=== PATIENT | male | born 1955 | race Caucasian/White ===

== ENCOUNTER 2021-07-10 07:49 | Outpatient (REF) | payer MEDICARE, MEDICAID, SELFPAY ==
--- NOTE | 2021-07-10 14:46 | PFT_ITS ---
Forced vital capacity and FEV1 are both moderately decreased. [id number] and MVV also moderately decreased. Postbronchodilator therapy, there is significant improvement in UOC33-28 and MVV. Total lung capacity is slightly decreased and residual volume normal. Diffusion capacity moderately decreased. CONCLUSION: 1. Moderately severe restrictive pulmonary disorder. 2. Mild obstructive airway disorder with good response to bronchodilator therapy. These findings are consistent with combination of bronchial asthma and restrictive pulmonary disorder. Clinical correlation is recommended. Kristi Hooper MD MSB/MODL / [id number]
== END 2021-07-10 07:50 | disposition home or self-care (01) ==
LOC: HO.RESP 07:49
PROVIDERS: Visit Provider Physician Assistant
DX: R06.2 Wheezing (principal)
CPT/HCPCS: 94060; 94727; 94729

== ENCOUNTER 2021-09-06 09:58 | Outpatient (REF) | payer MEDICARE, MEDICAID, SELFPAY ==
--- NOTE | ~2021-09-06 | XR_ITS ---
EXAMINATION: XR CHEST CLINICAL INFORMATION: J44.9 - Chronic obstructive pulmonary disease, unspecified COMPARISON: Chest radiographs 08/30/2013 TECHNIQUE: 2 views of the chest were obtained. FINDINGS: The lungs are clear. There is no hyperinflation, airspace consolidation or groundglass opacity. The costophrenic sulci are clear. The heart is normal in size and the hilar and mediastinal contours are unremarkable. No acute bony abnormality. XR/XR chest 2V IMPRESSION: Unremarkable examination.
== END 2021-09-06 09:59 | disposition home or self-care (01) ==
LOC: HO.XRAY 09:58
PROVIDERS: PCP Physician Assistant; Visit Provider Internal Medicine
DX: J44.9 Chronic obstructive pulmonary disease, unspecified (principal); J45.909 Unspecified asthma, uncomplicated
CPT/HCPCS: 71046; 99202

== ENCOUNTER 2021-10-09 08:12 | Outpatient (REF) | payer MEDICARE, MEDICAID, SELFPAY ==
[2021-10-09 10:13] LABS: Hematocrit 47.3 % (42.0-52.0); Hemoglobin 15.3 g/dl (14.0-18.0); Mean Corpuscular HGB Conc 32.3 g/dl (31.0-36.0); Mean Corpuscular Hemoglobin 29.9 pg (27.0-33.0); Mean Corpuscular Volume 92.6 fL (80.0-98.0); Mean Platelet Volume 9.9 fL (9.4-12.4); Platelet Count 329 X10*3/uL (160-400); Red Blood Count 5.11 X10*6/uL (4.60-5.80); Red Cell Distribution Width 12.6 % (11.0-16.0); White Blood Count 11.2 X10*3/uL (4.8-10.8)
[2021-10-09 10:25] LABS: Alanine Aminotransferase 12 U/L (0-40); Alkaline Phosphatase 103 U/L (39-117); Anion Gap 12 (12-20); Aspartate Amino Transferase 17 U/L (5-37); Bilirubin Total 0.9 mg/dL (0.0-1.0); Blood Urea Nitrogen 11 mg/dL (9-16); Calcium 9.6 mg/dL (8.4-10.2); Carbon Dioxide 29 mmol/L (22-29); Chloride 105 mmol/L (96-108); Estimated Average Glucose 108 mg/dL; Estimated Glomerular Filt Rate > 60; Glucose Fasting 93 mg/dL (60-99); Hemoglobin A1c % 5.4 %; Potassium 4.7 mmol/L (3.3-5.1); Sodium 141 mmol/L (135-145); Total Protein 7.5 g/dL (6.5-8.0)
[2021-10-09 10:46] LABS: Creatinine Urine 180.58 mg/dL; Microalbum/Creatinine Ratio Ur 3.8 ug/mg cr
[2021-10-09 10:47] LABS: Prostate Specific Antigen Scr 0.48 ng/mL (<0.05-4.0); TSH reflex Free T4 1.43 uIU/mL (0.32-4.0)
== END 2021-10-09 08:13 | disposition home or self-care (01) ==
LOC: HO.10HDL 08:12
PROVIDERS: Visit Provider Physician Assistant
DX: Z12.5 Encounter for screening for malignant neoplasm of prostate (principal); Z13.29 Encounter for screening for other suspected endocrine disorder; Z13.1 Encounter for screening for diabetes mellitus; I10 Essential (primary) hypertension
CPT/HCPCS: 36415; 80053; 82043; 83036; 84153; 84443; 85027

== ENCOUNTER → 2021-11-21 09:07 | Outpatient (BNVA) | payer MEDICARE, MEDICAID, SELFPAY | PROVIDERS: PCP Physician Assistant; Visit Provider Internal Medicine | DX: J44.9 Chronic obstructive pulmonary disease, unspecified (principal); J45.20 Mild intermittent asthma, uncomplicated | CPT/HCPCS: 94010; 99212 ==

== ENCOUNTER 2022-04-10 14:09 | Outpatient (REF) | payer MEDICARE, MEDICAID, SELFPAY ==
--- NOTE | ~2022-04-10 | XR_ITS ---
EXAMINATION: XR CHEST CLINICAL INFORMATION: Bronchitis COMPARISON: September 06, 2021 TECHNIQUE: 2 views of the chest were obtained. FINDINGS: No significant abnormality is noted involving the heart, lungs, mediastinum, bony thorax or soft tissues. XR/XR chest 2V IMPRESSION: No acute disease.
== END 2022-04-10 14:10 | disposition home or self-care (01) ==
LOC: HO.XRAY 14:09
PROVIDERS: PCP Physician Assistant; Visit Provider Internal Medicine
DX: J45.901 Unspecified asthma with (acute) exacerbation (principal)
CPT/HCPCS: 71046; 99212

== ENCOUNTER → 2022-04-22 11:21 | Outpatient (BNVA) | payer MEDICARE, MEDICAID, SELFPAY | PROVIDERS: PCP Physician Assistant; Visit Provider Internal Medicine | DX: J44.9 Chronic obstructive pulmonary disease, unspecified (principal); J45.20 Mild intermittent asthma, uncomplicated; J98.4 Other disorders of lung | CPT/HCPCS: 99212 ==

== ENCOUNTER 2022-06-19 08:36 | Outpatient (REF) | payer MEDICARE, MEDICAID, SELFPAY ==
--- NOTE | ~2022-06-19 | XR_ITS ---
EXAMINATION: XR KNEE, RIGHT CLINICAL INFORMATION: Right knee pain. COMPARISON: None TECHNIQUE: 3 views of the right knee. FINDINGS: Bones and soft tissues are unremarkable aside from some tiny posterior patellar osteophytes and a possible trace joint effusion. No fracture. Alignment is anatomic. Joint spaces are well maintained. No abnormal soft tissue calcification. XR/XR knee RT 3V IMPRESSION: Minimal patellofemoral degenerative change with possible trace joint effusion.
== END 2022-06-19 08:37 | disposition home or self-care (01) ==
LOC: HO.XRAY 08:36
PROVIDERS: PCP Physician Assistant; Visit Provider Physician Assistant
DX: M25.561 Pain in right knee (principal)
CPT/HCPCS: 73562

== ENCOUNTER → 2022-10-15 09:29 | Outpatient (BNVA) | payer OTHER, SELFPAY | PROVIDERS: PCP Physician Assistant; Visit Provider Internal Medicine | DX: J98.4 Other disorders of lung (principal); J45.20 Mild intermittent asthma, uncomplicated | CPT/HCPCS: 99212 ==

== ENCOUNTER 2023-02-23 11:49 | Emergency (ER) | payer OTHER, SELFPAY ==
--- NOTE | ~2023-02-23 | XR_ITS ---
EXAMINATION: CHEST 2 VIEWS CLINICAL INFORMATION: clammy and chest pain. COMPARISON: 04/10/2022. TECHNIQUE: PA and lateral views of the chest obtained. FINDINGS: The lungs are well expanded. No focal infiltrate, effusion, edema, or pneumothorax. Cardiac and mediastinal silhouettes are within normal limits for technique. No acute bony abnormality seen. Surgical clips in the right upper quadrant likely from prior cholecystectomy XR/XR chest 2V IMPRESSION: No evidence of acute disease.
[2023-02-23 11:58] VITALS: BP 155/100; PULSE 92; RESP 18; TEMP 36.5; O2SAT 98; BMI 23.0
--- NOTE | 2023-02-23 12:01 | ECG_ITS ---
Test Reason : Chest Pain Blood Pressure : / mmHG Vent. Rate : 082 BPM Atrial Rate : 082 BPM P-R Int : 136 ms QRS Dur : 078 ms QT Int : 368 ms P-R-T Axes : 073 026 039 degrees QTc Int : 429 ms Normal sinus rhythm Normal ECG When compared with ECG of 18-AUG-2013 13:19, No significant change was found Referred By: Tracy Aldrich Electronically Signed By:David Abreu
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
[2023-02-23 12:19] LABS: MANUAL DIFF FLAG NO
[2023-02-23 12:21] LABS: Basophils Percent Auto 0.2 % (0-2); Eosinophils Percent Auto 0.1 % (0-4); Hematocrit 46.9 % (42.0-52.0); Hemoglobin 15.7 g/dl (14.0-18.0); Imm Gran Abs Auto 0.04 X10*3/uL (0.00-0.03); Imm Gran Pct Auto 0.3 % (0.0-0.4); Lymphocytes Absolute Auto 1.6 X10*3/uL (1.2-4.9); Lymphocytes Percent Auto 12.7 % (20-40); Mean Corpuscular HGB Conc 33.5 g/dl (31.0-36.0); Mean Corpuscular Hemoglobin 30.4 pg (27.0-33.0); Mean Corpuscular Volume 90.9 fL (80.0-98.0); Mean Platelet Volume 9.3 fL (9.4-12.4); Monocytes Absolute Auto 0.5 X10*3/uL (0.1-1.2); Monocytes Percent Auto 4.4 % (2-11); Neutrophils Percent Auto 82.3 % (45-73); Platelet Count 317 X10*3/uL (160-400); Red Blood Count 5.16 X10*6/uL (4.60-5.80); Red Cell Distribution Width 12.6 % (11.0-16.0); White Blood Count 12.2 X10*3/uL (4.8-10.8)
[2023-02-23 12:31] LABS: INTERNATIONAL NORM RATIO 1.1 (0.9-1.1); Prothrombin Time 12.3 SEC (10.0-13.1)
[2023-02-23 12:41] LABS: Alanine Aminotransferase 13 U/L (0-40); Albumin Level 4.4 g/dL (3.5-5.0); Alkaline Phosphatase 90 U/L (39-117); Anion Gap 16 (12-20); Aspartate Amino Transferase 26 U/L (5-37); Bilirubin Total 1.4 mg/dL (0.0-1.0); Blood Urea Nitrogen 12 mg/dL (9-16); Calcium 10.3 mg/dL (8.4-10.2); Carbon Dioxide 24 mmol/L (22-29); Chloride 104 mmol/L (96-108); Creatinine Clr Calc Pharmacy 69.5; Estimated Glomerular Filt Rate > 60; Glucose Random 100 mg/dL (60-115); Magnesium 2.3 mg/dL (1.6-2.6); Potassium 4.7 mmol/L (3.3-5.1); Sodium 139 mmol/L (135-145); Total Protein 7.8 g/dL (6.5-8.0)
[2023-02-23 12:51] LABS: Troponin-I High Sensitivity < 2.7 ng/L (<3.5-35.0)
[2023-02-23 13:10] VITALS: BP 146/80; PULSE 89; RESP 18; TEMP 36.1; O2SAT 97
[2023-02-23 13:17] LABS: Appearance Urine Clear; Color Urine Dark Yellow; Glucose Urine UA Negative (Negative); Leukocyte Esterase Urine Trace (Negative); Nitrite Urine Negative (Negative); PH 6.5 (5.0-9.0); Specific Gravity - Urine >= 1.030 (1.005-1.025); UMIC TRIGGER UACC YES; Urine Blood Negative (Negative); Urine Ketones 80 mg/dL (Negative); Urine Protein 30 (1+) mg/dL (Neg-Trace)
[2023-02-23 13:22] LABS: Bacteria Urine None Seen (None Seen); Hyaline Casts Urine 0-2 /LPF (0-2); RBC Urine 0-2 /HPF (0-2); Squamous Epithelial Cell Urine 0-2 /HPF (0-2); WBC Urine 0-5 /HPF (0-5)
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
== END 2023-02-23 15:27 | disposition home or self-care (01) ==
PROVIDERS: Physician Assistant Medical; Emergency Provider Student in an Organized Health Care Education/Training Program; PCP Physician Assistant
DX: R07.89 Other chest pain (principal); E86.0 Dehydration; R79.82 Elevated C-reactive protein (CRP); Z87.891 Personal history of nicotine dependence; Z79.899 Other long term (current) drug therapy
CPT/HCPCS: 36415; 71046; 80053; 81001; 82550; 83735; 84484; 85025; 85610; 93005; 99284

== ENCOUNTER → 2023-02-23 12:01 | Outpatient (BNV) | payer OTHER, SELFPAY | PROVIDERS: Emergency Provider Student in an Organized Health Care Education/Training Program; PCP Physician Assistant; Visit Provider Internal Medicine Cardiovascular Disease | DX: R07.9 Chest pain, unspecified (principal) | CPT/HCPCS: 93010 ==

== ENCOUNTER 2023-03-28 09:27 | Outpatient (REF) | payer OTHER, SELFPAY ==
--- NOTE | ~2023-03-28 | XR_ITS ---
EXAMINATION: XR ELBOW, LEFT CLINICAL INFORMATION: Pain in left elbow COMPARISON: None available. TECHNIQUE: AP, lateral, and oblique views of the left elbow. FINDINGS: The bones are intact. Mild soft tissue swelling over the olecranon could represent mild olecranon bursitis. No fracture or joint effusion. Alignment is anatomic. Joint spaces are maintained. XR/XR elbow LT 2V IMPRESSION: 1. No bony abnormality. 2. Question mild olecranon bursitis.
== END 2023-03-28 09:28 | disposition home or self-care (01) ==
LOC: HO.XRAY 09:27
PROVIDERS: PCP Physician Assistant; Visit Provider Physician Assistant
DX: M25.522 Pain in left elbow (principal)
CPT/HCPCS: 73070

== ENCOUNTER 2023-04-30 07:42 | Outpatient (REF) | payer OTHER, SELFPAY ==
[2023-04-30 08:52] LABS: Hematocrit 46.3 % (42.0-52.0); Hemoglobin 15.2 g/dl (14.0-18.0); Mean Corpuscular HGB Conc 32.8 g/dl (31.0-36.0); Mean Corpuscular Volume 94.5 fL (80.0-98.0); Mean Platelet Volume 9.8 fL (9.4-12.4); Platelet Count 289 X10*3/uL (160-400); Red Cell Distribution Width 12.9 % (11.0-16.0); White Blood Count 8.6 X10*3/uL (4.8-10.8)
[2023-04-30 10:16] LABS: Alanine Aminotransferase 10 U/L (0-40); Albumin Level 4.1 g/dL (3.5-5.0); Alkaline Phosphatase 78 U/L (39-117); Anion Gap 12 (12-20); Aspartate Amino Transferase 16 U/L (5-37); Bilirubin Total 0.7 mg/dL (0.0-1.0); Blood Urea Nitrogen 11 mg/dL (9-16); Calcium 9.6 mg/dL (8.4-10.2); Carbon Dioxide 28 mmol/L (22-29); Chloride 107 mmol/L (96-108); Cholesterol 182 mg/dL (<200); Estimated Glomerular Filt Rate > 60; Glucose Fasting 102 mg/dL (60-99); HDL Cholesterol 56 mg/dL (>40); LDL Cholesterol Calculated 115 mg/dL (<100); Potassium 3.9 mmol/L (3.3-5.1); Sodium 143 mmol/L (135-145); Total Protein 7.2 g/dL (6.5-8.0); Triglycerides 57 mg/dL (<150)
[2023-04-30 10:26] LABS: Prostate Specific Antigen Scr 0.56 ng/mL (<0.05-4.0)
[2023-04-30 10:42] LABS: TSH reflex Free T4 1.21 uIU/mL (0.32-4.0)
[2023-04-30 10:57] LABS: Creatinine Urine 258.36 mg/dL; Microalbum/Creatinine Ratio Ur 5.8 ug/mg cr (<30)
== END 2023-04-30 07:43 | disposition home or self-care (01) ==
LOC: HO.LAB 07:42
PROVIDERS: PCP Physician Assistant; Visit Provider Physician Assistant
DX: Z13.220 Encounter for screening for lipoid disorders (principal); Z12.5 Encounter for screening for malignant neoplasm of prostate; I10 Essential (primary) hypertension
CPT/HCPCS: 36415; 80053; 80061; 82043; 82570; 84153; 84443; 85027

== ENCOUNTER 2023-05-06 08:12 | Outpatient (AMB) | payer OTHER, SELFPAY ==
[2023-05-06 08:18] VITALS: BP 130/76; PULSE 71; O2SAT 98; BMI 22.2
--- NOTE | 2023-05-06 08:18 | MHC.PC.OV ---
Vital Signs 05/06/23 08:18 Height 5 ft 7 in Weight 142 lb BMI 22.2 BP 130/76 Blood Pressure Location Lt brachial Position Sitting Pulse 71 Pulse Source Pulse Oximeter Pulse Oximetry (%) 98 Oxygen Delivery Method Room Air Intake Visit Reasons: 6mth f/u Allergies No Known Allergies Allergy (Verified 05/06/23 08:38) Medication List - Last Reconciled 05/06/23 by Adiel Cleary PA-C albuterol sulfate 90 mcg/actuation 1 inh inhalation QID 30 days blood pressure test kit-medium As directed lisinopril 5 mg PO DAILY 90 days Tobacco use date assessed: 10/29/22 Fall risk assessment: No Falls in past year Last assessed Fall Risk: 05/06/23 Dental Screening Dental Screen Date: 05/06/23 Did you have a dental visit in the last 12 months?: Yes Did you have a dental problem in the last 6 months where you did not have access to dental care?: No Was dental information given to patient?: Patient has dentist HPI 6mth f/u HPI Details Patient is a 67 y/ o M .? Patient has a past history significant for hypertension, asthma. Concern--> reports he continues to have lateral left elbow pain, has gotten x-ray that did show some mild olecranon bursitis. He does do a lot of activities with his upper extremities including blanket to her. Likely has a lateral epicondylitis and would benefit from physical therapy .. Asthma:? Patient followed by pulmonology, has been prescribed an albuterol inhaler to which she only seldomly uses. Did have a pulmonary function test did show reactive airway disease mostly in his small airways.? Otherwise denies any recent exacerbation or nighttime awakenings with asthma symptoms.? .. Hypertension:?.? Patient continues on lisinopril 5 mg with good effect on his blood pressure. continue without medication at this time and advised patient to monitor blood pressure at home.? Otherwise denies any shortness of breath, chest discomfort, palpitations, headaches.. [facility] Medical History (Updated 05/06/23 @ 08:56 by Adiel Cleary PA-C) Cervical myelopathy with cervical radiculopathy Erectile dysfunction Bronchitis Asthma exacerbation COPD (chronic obstructive pulmonary disease) Surgical History History of cholecystectomy H/O hernia repair Family History Father Alcoholic Brother Brain cancer Other Substance use disorder Social History Housing: Apartment Alcohol intake: former Year quit: 2006 Patient Tobacco Use Status: Former Tobacco user Quit Date: 2011 Tobacco use type: Cigarette Years Smoked: Quit 2011. e-Cigarette/Vaping Use: Former Use Second Hand Smoke Exposure: No service: No Current occupational status: retired Cognitive needs: No Hearing needs: Yes (hearing aide) Vision needs: Yes (glasses) Questionnaire PHQ-9 Over the last 2 weeks, how often have you been bothered by any of the following problems? 1. Little interest or pleasure in doing things: not at all 2. Feeling down, depressed, or hopeless: not at all 3. Trouble falling or staying asleep, or sleeping too much: not at all 4. Feeling tired or having little energy: not at all 5. Poor appetite or overeating: not at all 6. Feeling bad about yourself - or that you are a failure or have let yourself or your family down: not at all 7. Trouble concentrating on things, such as reading the newspaper or watching television: not at all 8. Moving or speaking so slowly that other people could have noticed. Or the opposite - being so fidgety or restless that you have been moving around a lot more than usual: not at all 9. Thoughts that you would be better off or of hurting yourself in some way: not at all Total score: 0 Depression Screening Interpretation: Negative Source: Developed by Drs. Josafat Milian, Mat Casas and colleagues, with an educational agata from [employer]. Thrive Questionnaire Date Thrive assessed: 10/29/22 AUDIT C Alcohol Use Questionnaire (AUDIT-C) 1. How often do you have a drink containing alcohol?: Never Total Score: 0 MIRI-7 AMB Questionnaire MIRI-7 Date MIRI - 7 assessed: 10/29/22 Source: Developed by Drs. Josafat Milian, Coreen Bolaños, Mat Carty and colleagues, with an educational agata from [employer]. ACT Questionnaire In the past 4 weeks, how much of the time did your asthma keep you from getting as much done at work, school or at home?: None of the time During the past 4 weeks, how often have you had shortness of breath?: Not at all During the past 4 weeks, how often did your asthma symptoms wake you up at night or earlier than usual in the morning?: Not at all During the past 4 weeks, how often have you had to use your rescue inhaler or nebulizer medication?: Not at all How would you rate your asthma control during the past 4 weeks?: Completely controlled ACT Interpretation: Negative Score: 25 Review of Systems Const Denies headache(s) Eyes Denies loss of vision ENT Denies vertigo, Denies dizziness, Denies headache(s) and Denies sore throat Card Denies chest pain, Denies leg edema and Denies lightheadedness Resp Denies cough, Denies hemoptysis and Denies wheezing GI Denies abdominal pain, Denies melena, Denies constipation, Denies diarrhea and Denies vomiting Denies dysuria, Denies urinary frequency and Denies urinary urgency Musc Denies arthralgias, Denies joint swelling, Denies numbness and Denies tingling Neuro Denies Abnormal speech present, Denies behavioral changes, Denies vertigo, Denies dizziness, Denies headache(s), Denies loss of vision, Denies memory loss, Denies numbness and Denies tingling Psych Denies anxiety, Denies behavioral changes, Denies depression, Denies memory loss and Denies panic attacks Bi/Lymph Denies easy bleeding and Denies easy bruising Aller/Immun Denies wheezing Physical exam (Primary Care) Vital Signs: Last Vital Signs Pulse 71 05/06/23 08:18 BP 130/76 05/06/23 08:18 Pulse Ox 98 05/06/23 08:18 Oxygen Delivery Method Room Air 05/06/23 08:18 BMI result Body Mass Index 22.2 Tobacco/Smoking Status: Tobacco use Status Tobacco use date assessed 10/29/22 05/06/23 08:22 Patient Tobacco Use Status Former Tobacco user 05/06/23 08:22 Tobacco use type Cigarette 05/06/23 08:22 e-Cigarette/Vaping Use Former Use 05/06/23 08:22 PHQ-9: PHQ-9 Score PHQ-9: Total score 0 05/06/23 08:40 Depression Screening Interpretation: Negative Thrive Assessment: Date of Thrive Assessment Date Thrive assessed 10/29/22 05/06/23 08:22 Const General: healthy appearing, no acute distress, alert and awake Nutritional Appearance: well nourished Orientation/consciousness: oriented to person, oriented to place and oriented to time HENMT Ears: TM's normal bilaterally General nose exam: Normal nasal mucous membranes and turbinates present Eyes Conjunctivae: conjunctivae normal Sclerae: sclerae normal Pupils: Equal, round and reactive pupils present Neck Neck: Yes no lymphadenopathy and Yes no JVD Thyroid: Thyroid normal Carotids: no bruits Resp Effort & Inspection: normal respiratory effort and not tachypneic Auscultation: no crackles, no rales, no rhonchi and no wheezes Cardio Rate: regular rate Rhythm: regular rhythm Heart sounds: no murmurs and normal S1 and S2 GI Palpation (GI): Soft to palpation, nontender, no hepatomegaly and no splenomegaly Auscultation: normal bowel sounds Skin General skin exam: no rashes or lesions noted and dry skin Neuro General: oriented to person, oriented to place and oriented to time Cranial nerves: Yes Equal, round and reactive pupils present Speech: No Abnormal speech present Gait exam (Neuro): Normal gait present Motor exam (neuro): no tremor noted Extrem Right upper extremity: full ROM Left upper extremity: full ROM Right lower extremity: full ROM; no edema Left lower extremity: full ROM; no edema Psych Mental Status: mental status grossly normal Speech and movement: Normal speech and movement present Affect: normal affect Attitude: cooperative Thought process: Normal thought process present Assessment and Plan Assessment & Plan (1) HTN (hypertension): Code(s): I10 - Essential (primary) hypertension Qualifiers: Hypertension type: primary hypertension Qualified Code(s): I10 - Essential (primary) hypertension Plan: Patient's blood pressure acceptable today in office will continue his current dose of lisinopril with goal blood pressure to be below 140/90 (2) Asthma: Comment: HE HAS A MILD COMPONENT OF BRONCHOSPASTIC DISORDER, MAINLY IN THE SMALL AIRWAYS. AT PRESENT FULLY CONTROLLED. TX : USE ALBUTEROL HFA 1 OR 2 PUFFS Q 4-6 HOURS ONLY P.R.N. Code(s): J45.909 - Unspecified asthma, uncomplicated Qualifiers: Asthma complication type: uncomplicated Asthma persistence: intermittent Asthma severity: mild Qualified Code(s): J45.20 - Mild intermittent asthma, uncomplicated Plan: As per HPI patient is followed by pulmonology. Has albuterol inhaler available to him though only seldomly has to use it. Denies any recent exacerbations or nighttime awakenings with asthma symptoms. (3) Impaired glucose metabolism: Code(s): R73.09 - Other abnormal glucose Plan: Noted slight elevation in his fasting blood sugar. He reports this can be diet related as he has been tracking were soda. Will check his fasting blood sugar at next lab draw. (4) Lateral epicondylitis, left elbow: Code(s): M77.12 - Lateral epicondylitis, left elbow Plan: Continues to have left lateral elbow pain. X-ray did show mild bursitis. He is left hand dominant and does report doing a lot of things with his upper extremity. Advised on conservative therapy, sleeve compression and NSAID use. Would likely benefit from occupational therapy for presumed tennis elbow. Orders: Orders OT Evaluation and Treatment Today M77.12 - Lateral epicondylitis, left elbow Comprehensive [facility]walk. Panel Fast 6 Months I10 - Essential (primary) hypertension Complete Blood Count no Diff 6 Months I10 - Essential (primary) hypertension Hemoglobin A1c 6 Months R73.09 - Other abnormal glucose Prostate Specific Antigen Scr 6 Months R73.09 - Other abnormal glucose, Z12.5 - Encounter for screening for malignant neoplasm of prostate Coding Level of Care Code Est Pt Level 4 (46119) Diagnoses Primary hypertension I10 Hypertension type: primary hypertension Mild intermittent asthma without complication J45.20 Asthma complication type: uncomplicated Asthma persistence: intermittent Asthma severity: mild Impaired glucose metabolism R73.09 Lateral epicondylitis, left elbow M77.12
== END 2023-05-06 08:55 | disposition home or self-care (01) ==
PROVIDERS: Visit Provider Physician Assistant
DX: I10 Essential (primary) hypertension (principal); J45.20 Mild intermittent asthma, uncomplicated; R73.09 Other abnormal glucose; M77.12 Lateral epicondylitis, left elbow
CPT/HCPCS: 99214

== ENCOUNTER 2023-10-28 07:07 | Outpatient (REF) | payer OTHER, SELFPAY ==
[2023-10-28 08:03] LABS: Hematocrit 47.1 % (42.0-52.0); Hemoglobin 15.8 g/dl (14.0-18.0); Mean Corpuscular HGB Conc 33.5 g/dl (31.0-36.0); Mean Corpuscular Hemoglobin 30.7 pg (27.0-33.0); Mean Corpuscular Volume 91.5 fL (80.0-98.0); Mean Platelet Volume 9.4 fL (9.4-12.4); Platelet Count 302 X10*3/uL (160-400); Red Blood Count 5.15 X10*6/uL (4.60-5.80); Red Cell Distribution Width 12.7 % (11.0-16.0); White Blood Count 11.3 X10*3/uL (4.8-10.8)
[2023-10-28 08:10] LABS: Estimated Average Glucose 100 mg/dL; Hemoglobin A1c % 5.1 % (<6.0)
[2023-10-28 08:45] LABS: Alanine Aminotransferase 12 U/L (0-40); Albumin Level 4.1 g/dL (3.5-5.0); Alkaline Phosphatase 79 U/L (39-117); Anion Gap 12 (12-20); Aspartate Amino Transferase 14 U/L (5-37); Bilirubin Total 0.6 mg/dL (0.0-1.0); Blood Urea Nitrogen 9 mg/dL (9-16); Calcium 9.2 mg/dL (8.4-10.2); Carbon Dioxide 27 mmol/L (22-29); Chloride 107 mmol/L (96-108); Estimated Glomerular Filt Rate > 60; Glucose Fasting 103 mg/dL (60-99); Potassium 4.1 mmol/L (3.3-5.1); Sodium 142 mmol/L (135-145); Total Protein 7.2 g/dL (6.5-8.0)
[2023-10-28 09:03] LABS: Prostate Specific Antigen Scr 0.58 ng/mL (<0.05-4.0)
== END 2023-10-28 07:08 | disposition home or self-care (01) ==
LOC: HO.LAB 07:07
PROVIDERS: PCP Physician Assistant; Visit Provider Physician Assistant
DX: Z12.5 Encounter for screening for malignant neoplasm of prostate (principal); I10 Essential (primary) hypertension; R73.09 Other abnormal glucose
CPT/HCPCS: 36415; 80053; 83036; 84153; 85027

== ENCOUNTER 2023-11-04 07:45 | Outpatient (AMB) | payer OTHER, SELFPAY ==
[2023-11-04 08:07] VITALS: BP 130/82; PULSE 79; O2SAT 99; BMI 24.6
--- NOTE | 2023-11-04 08:07 | A.OFFPC_ITS ---
Vital Signs 11/04/23 08:07 Height 5 ft 7 in Weight 157 lb BMI 24.6 BP 130/82 Blood Pressure Location Lt brachial Position Sitting Pulse 79 Pulse Source Pulse Oximeter Pulse Oximetry (%) 99 Oxygen Delivery Method Room Air Intake Visit Reasons: Annual Exam Intake Note: Patient here for a physical exam [employer] Attorney Required: No Accompanied by: Self / Same As Patient Allergies No Known Allergies Allergy (Verified 11/04/23 08:13) Medication List - Last Reconciled 11/04/23 by Adiel Cleary PA-C albuterol sulfate 90 mcg/actuation 1 inh inhalation QID 30 days blood pressure test kit-medium As directed lisinopril 5 mg PO DAILY 90 days sildenafil 25 mg PO DAILY PRN Tobacco use date assessed: 11/04/23 Fall risk assessment: No Falls in past year Last assessed Fall Risk: 11/04/23 Dental Screening Dental Screen Date: 11/04/23 Did you have a dental visit in the last 12 months?: No Did you have a dental problem in the last 6 months where you did not have access to dental care?: No Was dental information given to patient?: Patient has dentist HPI Annual Exam HPI Details Patient is a 67 y/ o M here today for routine annual physical .? Patient has a past history significant for hypertension, asthma. Concern--> reports having mild Peyronie's disease symptoms. Considering seeing Urology. .. Asthma:? Patient followed by pulmonology, has been prescribed an albuterol inhaler to which she only rarely uses. Did have a pulmonary function test did show reactive airway disease mostly in his small airways.? Otherwise denies any recent exacerbation or nighttime awakenings with asthma symptoms.? .. Hypertension:?.? Patient continues on lisinopril 5 mg with good effect on his blood pressure. continue without medication at this time and advised patient to monitor blood pressure at home.? Otherwise denies any shortness of breath, chest discomfort, palpitations, headaches.. PLAN: Will try being off of lisinopril and monitoring blood pressures at home, if consistently below 140/90 will discontinue lisinopril 5 mg Colon cancer screening--> Cologuard done 06/2022 - negative Vaccine: Up-to-date with COVID vaccine, pneumonia vaccine, considering shingles vaccine , Needs Td- considering Laboratory Tests 10/09/21 04/30/2304/30/23 08:20 08:05 08:05 WBC RBC 4.90 Creatinine Fasting Glucose 102 H Hemoglobin A1c % 5.4 PSA Screen 0.48 0.56 TSH 1.21 Urine Microalbumin 04/30/23 10/28/23 08:37 07:17 WBC 11.3 H RBC 5.15 Creatinine 0.93 Fasting Glucose 103 H Hemoglobin A1c % 5.1 PSA Screen 0.58 TSH Urine Microalbumin 15.0 PFSH Medical History Cervical myelopathy with cervical radiculopathy Erectile dysfunction Bronchitis Asthma exacerbation COPD (chronic obstructive pulmonary disease) Surgical History History of cholecystectomy H/O hernia repair Family History Father Alcoholic Brother Brain cancer Other Substance use disorder Social History (Updated 11/04/23 @ 08:18 by Adiel Cleary PA-C) Housing: Apartment Alcohol intake: former Year quit: 2006 Patient Tobacco Use Status: Former Tobacco user Quit Date: 2011 Tobacco use type: Cigarette Years Smoked: Quit 2011. e-Cigarette/Vaping Use: Former Use Second Hand Smoke Exposure: No Substance Use Type: Marijuana service: No Current occupational status: retired Cognitive needs: No Hearing needs: Yes (hearing aide) Vision needs: Yes (glasses) Questionnaire PHQ-9 Over the last 2 weeks, how often have you been bothered by any of the following problems? 1. Little interest or pleasure in doing things: not at all 2. Feeling down, depressed, or hopeless: not at all 3. Trouble falling or staying asleep, or sleeping too much: not at all 4. Feeling tired or having little energy: not at all 5. Poor appetite or overeating: not at all 6. Feeling bad about yourself - or that you are a failure or have let yourself or your family down: not at all 7. Trouble concentrating on things, such as reading the newspaper or watching television: not at all 8. Moving or speaking so slowly that other people could have noticed. Or the opposite - being so fidgety or restless that you have been moving around a lot more than usual: not at all 9. Thoughts that you would be better off or of hurting yourself in some way: not at all Total score: 0 Depression Screening Interpretation: Negative Depression Screening Done: Yes 72996 - PHQ-9 Billing: Yes Source: Developed by Drs. Josafat Milian, Coreen Bolaños, Mat Carty and colleagues, with an educational agata from [employer]. Thrive Questionnaire Date Thrive assessed: 11/04/23 I am a: Patient What is your living situation today?: I have a steady place to live Within the past 12 months, did the food you bought not last and you didn't have the money to get more?: Never true Within the past 12 months, did you worry whether your food would run out before you got money to buy more?: Never true Do you have trouble paying for medicines?: No Do you have trouble getting transportation to medical appointments?: No Do you have trouble paying your heating and electricity bill?: No Do you have trouble taking care of your child, family member or friend?: No Do you have trouble with day-to-day activities such as bathing, preparing meals, shopping, managing finances, etc.?: No Are you currently unemployed and looking for a job?: No Are you interested in more education?: No Please select the resources that you would like help with: None Currently or been in a relationship where the following occur: no concerns reported THRIVE Score: 0 AUDIT C Alcohol Use Questionnaire (AUDIT-C) 1. How often do you have a drink containing alcohol?: Never Total Score: 0 MRII-7 AMB Questionnaire MIRI-7 Date MIRI - 7 assessed: 11/04/23 Feeling nervous, anxious, or on edge: 0 = Not at all Not being able to stop or control worryin = Not at all Worrying too much about different things: 0 = Not at all Trouble relaxin = Not at all Being so restless that it is hard to sit still: 0 = Not at all Becoming easily annoyed or irritable: 0 = Not at all Feeling afraid as if something awful might happen: 0 = Not at all Total IMRI-7 score (0-4 normal; 5-9 mild; 10-14 moderate; 15-21 severe): 0 Source: Developed by Drs. Josafat Milian, Coreen Bolaños, Mat Carty and colleagues, with an educational agata from [employer]. MIRI-7 Assessment Billing MIRI-7 Assessment Tool: MIRI-7 Assessment 37680 ACT Questionnaire In the past 4 weeks, how much of the time did your asthma keep you from getting as much done at work, school or at home?: None of the time During the past 4 weeks, how often have you had shortness of breath?: Not at all During the past 4 weeks, how often did your asthma symptoms wake you up at night or earlier than usual in the morning?: Not at all During the past 4 weeks, how often have you had to use your rescue inhaler or nebulizer medication?: Not at all How would you rate your asthma control during the past 4 weeks?: Completely controlled ACT Interpretation: Negative Score: 25 Review of Systems Const Denies body aches, Denies chills, Denies excessive sweating, Denies fatigue, Denies fever(s) and Denies headache(s) Eyes Denies blurry vision ENT Denies dysphagia, Denies vertigo, Denies dizziness, Denies headache(s), Denies hearing loss and Denies tinnitus Card Denies chest pain, Denies chest pain with activity, Denies syncope, Denies irregular heart rhythm and Denies dyspnea Resp Denies chest congestion, Denies cough, Denies hemoptysis, Denies dyspnea and Denies wheezing GI Denies abdominal pain, Denies melena, Denies hematochezia, Denies coffee ground emesis, Denies dysphagia, Denies diarrhea, Denies nausea and Denies vomiting Denies difficulty urinating, Denies dysuria, Denies urinary frequency, Denies urinary hesitancy and Denies urinary urgency Musc Denies arthralgias, Denies limited range of motion, Denies muscle cramps and Denies muscle weakness Skin/Breast Denies rash and Denies skin ulcer Neuro Denies Abnormal speech present, Denies confusion, Denies vertigo, Denies dizziness, Denies syncope, Denies headache(s), Denies memory loss and Denies seizure-like activity Psych Denies anxiety, Denies confusion, Denies depression, Denies memory loss, Denies panic attacks and Denies paranoia Endo Denies excessive sweating, Denies fatigue, Denies flushing, Denies polydipsia and Denies polyuria Aller/Immun Denies wheezing Physical exam (Primary Care) Vital Signs: Last Vital Signs Pulse 79 11/04/23 08:07 BP 130/82 11/04/23 08:07 Pulse Ox 99 11/04/23 08:07 Oxygen Delivery Method Room Air 11/04/23 08:07 BMI result Body Mass Index 24.6 Tobacco/Smoking Status: Tobacco use Status Tobacco use date assessed 11/04/23 11/04/23 08:12 Patient Tobacco Use Status Former Tobacco user 11/04/23 08:12 Tobacco use type Cigarette 11/04/23 08:12 e-Cigarette/Vaping Use Former Use 11/04/23 08:12 PHQ-9: PHQ-9 Score PHQ-9: Total score 0 11/04/23 08:12 Depression Screening Interpretation: Negative Thrive Assessment: Date of Thrive Assessment Date Thrive assessed 11/04/23 11/04/23 08:12 Currently or been in a relationship where the following occur: no concerns reported Const General: cooperative, comfortable, no acute distress, alert and awake; No confusion Orientation/consciousness: oriented to person, oriented to place, patient oriented x3 and No confusion HENMT Head: Yes normocephalic Ears: external ears normal and TM's normal bilaterally Face and sinus: No sinus tenderness Mouth: Normal oral and palatal mucosa present and tongue normal Teeth and gingiva: dentition normal and gingiva normal Throat: Yes posterior oropharynx normal, Yes tonsils normal and Yes uvula midline Eyes Conjunctivae: conjunctivae normal Sclerae: sclerae normal Pupils: Equal, round and reactive pupils present EOM: EOMs intact bilaterally Direct Ophthalmoscopy: No no photophobia Neck Neck: Yes no lymphadenopathy, No tender and Yes no JVD Thyroid: Thyroid normal Carotids: no bruits Chest Chest palpation & inspection: no tenderness Resp Effort & Inspection: normal respiratory effort, no audible wheezes, not labored and no stridor Auscultation: no crackles, no rales, no rhonchi and no wheezes Cardio Jugular venous distension: no JVD Rate: regular rate, not bradycardic and not tachycardic Rhythm: regular rhythm Bruits: no carotid bruits Peripheral pulses: Peripheral pulses 2+ throughout GI Inspection: Yes normal to inspection, No abdominal wall ecchymosis and No visible herniation Palpation (GI): Soft to palpation, nontender, no guarding, not rigid and No hepatosplenomegaly present Auscultation: normoactive bowel sounds General: Yes no CVA tenderness Back/Spine/Pelvis Back: no CVA tenderness and No back tenderness Cervical Spine: cervical ROM normal Thoracic/Lumbar Spine: thoracic and lumbar spine normal to inspection, straight leg raise negative bilaterally, No thoraco-lumbar ROM limited and No lumbar spinal tenderness Skin Lesions: no lesions Rashes: no rashes Wounds: no wounds Neuro General: oriented to person, oriented to place, patient oriented x3, CN's II-XI intact bilaterally and No confusion Cranial nerves: Yes Equal, round and reactive pupils present and Yes Normal accommodation reflex present Cognition (Neuro): normal cognition Speech: No Abnormal speech present Gait exam (Neuro): Normal gait present Motor exam (neuro): 5/5 motor strength present throughout Extrem Right upper extremity: full ROM; no cyanosis Left upper extremity: full ROM; no cyanosis Right lower extremity: no edema Left lower extremity: no edema Psych Appearance: grossly normal Mental Status: mental status grossly normal Affect: normal affect Attitude: cooperative Thought process: Normal thought process present Assessment and Plan Assessment & Plan (1) Annual physical exam: Code(s): Z00.00 - Encounter for general adult medical examination without abnormal findings (2) HTN (hypertension): Code(s): I10 - Essential (primary) hypertension Qualifiers: Hypertension type: primary hypertension Qualified Code(s): I10 - Essential (primary) hypertension Plan: Patient's blood pressure acceptable today in office will continue his current dose of lisinopril with goal blood pressure to be below 140/90 (3) Asthma: Comment: HE HAS A MILD COMPONENT OF BRONCHOSPASTIC DISORDER, MAINLY IN THE SMALL AIRWAYS. AT PRESENT FULLY CONTROLLED. TX : USE ALBUTEROL HFA 1 OR 2 PUFFS Q 4-6 HOURS ONLY P.R.N. Code(s): J45.909 - Unspecified asthma, uncomplicated Qualifiers: Asthma severity: mild Asthma persistence: intermittent Asthma complication type: uncomplicated Qualified Code(s): J45.20 - Mild intermittent asthma, uncomplicated Plan: As per HPI patient is followed by pulmonology. Has albuterol inhaler available to him though only seldomly has to use it. Denies any recent exacerbations or nighttime awakenings with asthma symptoms. (4) Impaired glucose metabolism: Code(s): R73.09 - Other abnormal glucose Plan: Noted slight elevation in his fasting blood sugar. He does admit to eating a lot of rice. Patient's A1c not in prediabetic or diabetic range. Will continue to try a low carbohydrate diet. (5) Peyronie disease: Code(s): N48.6 - Induration penis plastica (6) Leukocytosis: Code(s): D72.829 - Elevated white blood cell count, unspecified Qualifiers: Leukocytosis type: unspecified Qualified Code(s): D72.829 - Elevated white blood cell count, unspecified Plan: If noted slight leukocytosis over last few years. No reports recent infections besides in July of 2023 having RSV infection. Will recheck CBC and consider Hematology evaluation. Orders: Orders Complete Blood Count no Diff Today D72.829 - Elevated white blood cell count, unspecified Microalbumin, Random (w Creat) 6 Months I10 - Essential (primary) hypertension Comprehensive Grant. Panel Fast 6 Months I10 - Essential (primary) hypertension Coding Level of Care Code Est Pt Prev Care >65y(80173) Diagnoses Annual physical exam Z00.00 Primary hypertension I10 Hypertension type: primary hypertension Mild intermittent asthma without complication J45.20 Asthma severity: mild Asthma persistence: intermittent Asthma complication type: uncomplicated Impaired glucose metabolism R73.09 Peyronie disease N48.6 Leukocytosis, unspecified type D72.829 Leukocytosis type: unspecified Additional Codes MIRI-7 Assessment Billing - MIRI-7 Assessment Tool: MIRI-7 Assessment 14057 ([id number])
== END 2023-11-04 08:34 | disposition home or self-care (01) ==
PROVIDERS: PCP Physician Assistant; Visit Provider Physician Assistant
DX: Z00.00 Encounter for general adult medical examination without abnormal findings (principal); I10 Essential (primary) hypertension; J45.20 Mild intermittent asthma, uncomplicated; R73.09 Other abnormal glucose; N48.6 Induration penis plastica; D72.829 Elevated white blood cell count, unspecified
CPT/HCPCS: 99397

== ENCOUNTER 2024-05-04 07:49 | Outpatient (AMB) | payer OTHER, SELFPAY ==
[2024-05-04 08:15] VITALS: BP 130/82; BMI 23.6
--- NOTE | 2024-05-04 08:15 | A.OFFPC_ITS ---
Vital Signs 05/04/24 08:15 Height 5 ft 7 in Weight 151 lb BMI 23.6 BP 130/82 Blood Pressure Location Lt brachial Position Sitting Intake Visit Reasons: f/u HTN Intake Note: Patient here for a follow up HTN [employer] Required: No Accompanied by: Self / Same As Patient Allergies No Known Allergies Allergy (Verified 05/04/24 08:37) Medication List - Last Reconciled 05/04/24 by Adiel Cleary PA-C blood pressure test kit-medium As directed sildenafil 100 mg PO DAILY PRN 90 days Tobacco use date assessed: 11/04/23 Fall risk assessment: No Falls in past year Last assessed Fall Risk: 05/04/24 Dental Screening Dental Screen Date: 11/04/23 HPI f/u HTN HPI Details Patient is a 68 y/ o M here today for a follow-up visit.? Patient has a past history significant for hypertension, asthma. Concern--> patient reports having numbness in his left hand and arm. Does have history of cervical disc disease. He is willing to get x-rays of his cervical spine and consider physical therapy. Also consider EMG to evaluate for carpal or cubital tunnel syndrome. .. Asthma:? Patient followed by pulmonology, has been prescribed an albuterol inhaler to which she only rarely uses. Did have a pulmonary function test did show reactive airway disease mostly in his small airways.? Otherwise denies any recent exacerbation or nighttime awakenings with asthma symptoms.? .. Hypertension:?.? Patient has stopped using lisinopril, has lost weight since last office visit. Blood pressure today in office acceptable. continue without medication at this time and advised patient to monitor blood pressure at home.? [facility] Medical History (Updated 05/04/24 @ 08:45 by Adiel Cleary PA-C) Cervical myelopathy with cervical radiculopathy Erectile dysfunction Bronchitis Asthma exacerbation COPD (chronic obstructive pulmonary disease) Surgical History History of cholecystectomy H/O hernia repair Family History Father Alcoholic Brother Brain cancer Other Substance use disorder Social History Housing: Apartment Alcohol intake: former Year quit: 2006 Patient Tobacco Use Status: Former Tobacco user Tobacco use type: Cigarette Years Smoked: Quit 2011. e-Cigarette/Vaping Use: Former Use Second Hand Smoke Exposure: No Substance Use Type: Marijuana service: No Current occupational status: retired Cognitive needs: No Hearing needs: Yes (hearing aide) Vision needs: Yes (glasses) Questionnaire Thrive Questionnaire Date Thrive assessed: 11/04/23 Are you currently unemployed and looking for a job?: I choose not to answer this question MIRI-7 AMB Questionnaire MIRI-7 Date MIRI - 7 assessed: 11/04/23 Source: Developed by Drs. Josafat Milian, Coreen Bolaños, Mat Carty and colleagues, with an educational agata from [employer]. ACT Questionnaire In the past 4 weeks, how much of the time did your asthma keep you from getting as much done at work, school or at home?: None of the time During the past 4 weeks, how often have you had shortness of breath?: Not at all During the past 4 weeks, how often did your asthma symptoms wake you up at night or earlier than usual in the morning?: Not at all During the past 4 weeks, how often have you had to use your rescue inhaler or nebulizer medication?: Not at all How would you rate your asthma control during the past 4 weeks?: Completely controlled ACT Interpretation: Negative Score: 25 Review of Systems Const Denies headache(s) Eyes Denies loss of vision ENT Denies vertigo, Denies dizziness, Denies headache(s) and Denies sore throat Card Denies chest pain, Denies leg edema and Denies lightheadedness Resp Denies cough, Denies hemoptysis and Denies wheezing GI Denies abdominal pain, Denies melena, Denies constipation, Denies diarrhea and Denies vomiting Denies dysuria, Denies urinary frequency and Denies urinary urgency Musc Denies arthralgias, Denies joint swelling, Denies numbness and Denies tingling Neuro Denies Abnormal speech present, Denies behavioral changes, Denies vertigo, Denies dizziness, Denies headache(s), Denies loss of vision, Denies memory loss, Denies numbness and Denies tingling Psych Denies anxiety, Denies behavioral changes, Denies depression, Denies memory loss and Denies panic attacks Bi/Lymph Denies easy bleeding and Denies easy bruising Aller/Immun Denies wheezing Physical exam (Primary Care) Vital Signs: Last Vital Signs BP 130/82 05/04/24 08:15 BMI result Body Mass Index 23.6 Tobacco/Smoking Status: Tobacco use Status Tobacco use date assessed 11/04/23 05/04/24 08:15 Patient Tobacco Use Status Former Tobacco user 05/04/24 08:15 Tobacco use type Cigarette 05/04/24 08:15 e-Cigarette/Vaping Use Former Use 05/04/24 08:15 Thrive Assessment: Date of Thrive Assessment Date Thrive assessed 11/04/23 05/04/24 08:15 Const General: healthy appearing, no acute distress, alert and awake Nutritional Appearance: well nourished Orientation/consciousness: oriented to person, oriented to place and oriented to time HENMT Ears: TM's normal bilaterally General nose exam: Normal nasal mucous membranes and turbinates present Eyes Conjunctivae: conjunctivae normal Sclerae: sclerae normal Pupils: Equal, round and reactive pupils present Neck Neck: Yes no lymphadenopathy and Yes no JVD Thyroid: Thyroid normal Carotids: no bruits Resp Effort & Inspection: normal respiratory effort and not tachypneic Auscultation: no crackles, no rales, no rhonchi and no wheezes Cardio Rate: regular rate Rhythm: regular rhythm Heart sounds: no murmurs and normal S1 and S2 GI Palpation (GI): Soft to palpation, nontender, no hepatomegaly and no splenomegaly Auscultation: normal bowel sounds Skin General skin exam: no rashes or lesions noted and dry skin Neuro General: oriented to person, oriented to place and oriented to time Cranial nerves: Yes Equal, round and reactive pupils present Speech: No Abnormal speech present Gait exam (Neuro): Normal gait present Motor exam (neuro): no tremor noted Extrem Right upper extremity: full ROM Left upper extremity: full ROM Right lower extremity: full ROM; no edema Left lower extremity: full ROM; no edema Psych Mental Status: mental status grossly normal Speech and movement: Normal speech and movement present Affect: normal affect Attitude: cooperative Thought process: Normal thought process present Assessment and Plan Assessment & Plan (1) HTN (hypertension): Code(s): I10 - Essential (primary) hypertension Qualifiers: Hypertension type: primary hypertension Qualified Code(s): I10 - Essential (primary) hypertension Plan: Patient's blood pressure acceptable today in office . Has been able to manage his blood pressure without medication. Was previously on lisinopril. Goal blood pressures to remain below 140/90. (2) Left shoulder tendinitis: Code(s): M77.8 - Other enthesopathies, not elsewhere classified Plan: Patient reports some crepitus in his left shoulder and some discomfort over the deltoid region. Will send for x-ray to evaluate for osteoarthritis. Will consider physical therapy. (3) Left hand paresthesia: Code(s): R20.2 - Paresthesia of skin Plan: Patient does report some left hand paresthesias lately. Does have history of cervical spine disc disease. Will send for x-ray cervical spine evaluate for any worsening arthritis. Will consider EMG of left upper extremity evaluate for carpal tunnel syndrome (4) Asthma: Comment: HE HAS A MILD COMPONENT OF BRONCHOSPASTIC DISORDER, MAINLY IN THE SMALL AIRWAYS. AT PRESENT FULLY CONTROLLED. TX : USE ALBUTEROL HFA 1 OR 2 PUFFS Q 4-6 HOURS ONLY P.R.N. Code(s): J45.909 - Unspecified asthma, uncomplicated Qualifiers: Asthma complication type: uncomplicated Asthma persistence: intermittent Asthma severity: mild Qualified Code(s): J45.20 - Mild intermittent asthma, uncomplicated Plan: As per HPI patient is followed by pulmonology. Has albuterol inhaler available to him though only seldomly has to use it. Denies any recent exacerbations or nighttime awakenings with asthma symptoms. (5) Impaired glucose metabolism: Code(s): R73.09 - Other abnormal glucose Plan: Noted slight elevation in his fasting blood sugar. He does admit to eating a lot of rice. Patient's A1c not in prediabetic or diabetic range. Will continue to try a low carbohydrate diet. (6) Cervical myelopathy with cervical radiculopathy: Code(s): G95.9 - Disease of spinal cord, unspecified; M54.12 - Radiculopathy, cervical region Plan: As above Orders: Orders XR shoulder LT min 2V 05/04/24 M77.8 - Other enthesopathies, not elsewhere classified XR cervical spine 4V 05/04/24 G95.9 - Disease of spinal cord, unspecified, M54.12 - Radiculopathy, cervical region Patient Instructions: Goal: Blood pressure to remain below 140/90 Barriers: Adherence to physical activity and healthy eating habits Coding Level of Care Code Est Pt Level 4 (09925) Diagnoses Primary hypertension I10 Hypertension type: primary hypertension Left shoulder tendinitis M77.8 Left hand paresthesia R20.2 Mild intermittent asthma without complication J45.20 Asthma complication type: uncomplicated Asthma persistence: intermittent Asthma severity: mild Impaired glucose metabolism R73.09 Cervical myelopathy with cervical radiculopathy G95.9; M54.12
== END 2024-05-04 08:54 | disposition home or self-care (01) ==
PROVIDERS: PCP Physician Assistant; Visit Provider Physician Assistant
DX: I10 Essential (primary) hypertension (principal); G95.9 Disease of spinal cord, unspecified; M77.8 Other enthesopathies, not elsewhere classified; R20.2 Paresthesia of skin; J45.20 Mild intermittent asthma, uncomplicated; R73.09 Other abnormal glucose; M54.12 Radiculopathy, cervical region

== ENCOUNTER 2024-05-04 07:49 | Outpatient (REF) | payer OTHER, SELFPAY ==
--- NOTE | ~2024-05-04 | XR_ITS ---
EXAMINATION: XR CERVICAL SPINE CLINICAL INFORMATION: Disease or spinal cord, unspecified COMPARISON: None available. TECHNIQUE: 4 views of the cervical spine, inclusive both oblique views, were obtained. FINDINGS: C7 is partly obscured by the soft tissues of the patient's shoulders. The prevertebral soft tissues are within normal limits. There is no fracture. No subluxation. There is marked disc space narrowing at marginal osteophyte formation from C3 through C7. There is multilevel degenerative facet joint disease, most pronounced in the upper to mid cervical spine. The neural foramina are patent. XR/XR cervical spine 4V IMPRESSION: 1. Multilevel degenerative disc disease from C3 through C7. 2. Multilevel degenerative facet joint disease. Electronically signed by: Yevtte Taylor MD 05/20/2024 01:28 PM EDT
--- NOTE | ~2024-05-04 | XR_ITS ---
EXAMINATION: XR SHOULDER, LEFT CLINICAL INFORMATION: Other enthesopathies, not elsewhere classified COMPARISON: None available. TECHNIQUE: AP external rotation, Grashey, scapular Y, and axillary views of the left shoulder. FINDINGS: The bones are intact. No fracture. Glenohumeral and acromioclavicular alignment is anatomic with normal glenohumeral joint space. Moderate degenerative change of the acromioclavicular joint. No abnormal soft tissue calcifications. XR/XR shoulder LT min 2V IMPRESSION: Moderate degenerative change of the acromioclavicular joint. Electronically signed by: Yvette Taylor MD 05/20/2024 01:25 PM EDT
== END 2024-05-04 07:50 | disposition home or self-care (01) ==
LOC: HO.XRAY 07:49
PROVIDERS: PCP Physician Assistant; Visit Provider Physician Assistant
DX: I10 Essential (primary) hypertension (principal); M77.8 Other enthesopathies, not elsewhere classified; R20.2 Paresthesia of skin; J45.20 Mild intermittent asthma, uncomplicated; R73.09 Other abnormal glucose; G95.9 Disease of spinal cord, unspecified; M54.12 Radiculopathy, cervical region
CPT/HCPCS: 72050; 73030; 96160; 99212

== ENCOUNTER 2024-11-01 08:24 | Outpatient (REF) | payer OTHER, SELFPAY ==
[2024-11-01 09:03] LABS: Hemoglobin 16.3 g/dl (14.0-18.0); Mean Corpuscular HGB Conc 33.3 g/dl (31.0-36.0); Mean Corpuscular Hemoglobin 30.4 pg (27.0-33.0); Mean Corpuscular Volume 91.2 fL (80.0-98.0); Mean Platelet Volume 9.4 fL (9.4-12.4); Platelet Count 289 X10*3/uL (160-400); Red Blood Count 5.37 X10*6/uL (4.60-5.80); White Blood Count 9.3 X10*3/uL (4.8-10.8)
[2024-11-01 09:31] LABS: Alanine Aminotransferase 20 U/L (0-40); Albumin Level 4.3 g/dL (3.5-5.0); Alkaline Phosphatase 81 U/L (39-117); Anion Gap 11 (12-20); Aspartate Amino Transferase 24 U/L (5-37); Bilirubin Total 0.8 mg/dL (0.0-1.0); Blood Urea Nitrogen 8 mg/dL (9-16); Calcium 9.5 mg/dL (8.4-10.2); Carbon Dioxide 30 mmol/L (22-29); Chloride 106 mmol/L (96-108); Estimated Glomerular Filt Rate > 60; Glucose Fasting 107 mg/dL (60-99); Potassium 4.4 mmol/L (3.3-5.1); Sodium 143 mmol/L (135-145); Total Protein 7.6 g/dL (6.5-8.0)
[2024-11-01 09:41] LABS: Creatinine Urine 211.98 mg/dL; Microalbum/Creatinine Ratio Ur 9.4 ug/mg cr (<30)
== END 2024-11-01 08:25 | disposition home or self-care (01) ==
LOC: HO.LAB 08:24
PROVIDERS: PCP Physician Assistant; Visit Provider Physician Assistant
DX: D72.829 Elevated white blood cell count, unspecified (principal); I10 Essential (primary) hypertension
CPT/HCPCS: 36415; 80053; 82043; 82570; 85027

== ENCOUNTER 2024-11-04 07:57 | Outpatient (AMB) | payer OTHER, SELFPAY ==
[2024-11-04 08:07] VITALS: BP 154/94; PULSE 98; RESP 20; TEMP 36.4; O2SAT 98; BMI 24.7
--- NOTE | 2024-11-04 08:07 | A.OFFPC_ITS ---
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 Accompanied by: Self / Same As Patient Allergies No Known Allergies Allergy (Verified 11/04/24 08:21) Medication List - Last Reconciled 11/04/24 by Adiel Cleary PA-C blood pressure test kit-medium As directed sildenafil 100 mg PO DAILY PRN 90 days Tobacco use date assessed: 11/04/24 Fall risk assessment: No Falls in past year Last assessed Fall Risk: 11/04/24 Dental Screening Dental Screen Date: 11/04/24 Did you have a dental visit in the last 12 months?: No Did you have a dental problem in the last 6 months where you did not have access to dental care?: No Was dental information given to patient?: Patient has dentist HPI Annual exam HPI Details Patient is a 68 y/ o M here today for a routine annual physical.? Patient has a past history significant for hypertension, asthma. Concern--> .. Asthma:? Did have a pulmonary function test few years ago did show reactive airway disease mostly in his small airways. Currently does not regularly use an albuterol inhaler. He feels his asthma is well controlled ? Otherwise denies any recent exacerbation or nighttime awakenings with asthma symptoms.? .. Hypertension:?.? Patient has stopped using lisinopril previous he in the setting of losing weight and getting better blood pressure control. Today we have noticed weight gain.> Blood pressure today in office is elevated continue without medication at this time and advised patient to monitor blood pressure at home. Colon cancer screening--> Cologuard done 06/2022 - negative - needs repeat this year Vaccine: Up-to-date with COVID vaccine, pneumonia vaccine, considering shingles vaccine , Needs Td- considering Laboratory Tests 04/30/23 10/28/23 11/01/24 08:05 07:17 08:30 RBC Creatinine Fasting Glucose 103 H Cholesterol 182 PSA Screen 0.58 Urine Microalbumin 20.0 11/01/24 08:33 RBC 5.37 Creatinine 1.00 Fasting Glucose 107 H Cholesterol PSA Screen Urine Microalbumin PFSH Medical History Cervical myelopathy with cervical radiculopathy Erectile dysfunction Bronchitis Asthma exacerbation COPD (chronic obstructive pulmonary disease) Surgical History History of cholecystectomy H/O hernia repair Family History Father Alcoholic Brother Brain cancer Other Substance use disorder Social History Housing: Apartment Alcohol intake: former Year quit: 2006 Patient Tobacco Use Status: Former Tobacco user Tobacco use type: Cigarette Years Smoked: Quit 2011. e-Cigarette/Vaping Use: Former Use Second Hand Smoke Exposure: No Substance Use Type: Marijuana service: No Current occupational status: retired Cognitive needs: No Hearing needs: Yes (hearing aide) Vision needs: Yes (glasses) Questionnaire PHQ-9 Over the last 2 weeks, how often have you been bothered by any of the following problems? 1. Little interest or pleasure in doing things: not at all 2. Feeling down, depressed, or hopeless: not at all 3. Trouble falling or staying asleep, or sleeping too much: not at all 4. Feeling tired or having little energy: not at all 5. Poor appetite or overeating: not at all 6. Feeling bad about yourself - or that you are a failure or have let yourself or your family down: not at all 7. Trouble concentrating on things, such as reading the newspaper or watching television: not at all 8. Moving or speaking so slowly that other people could have noticed. Or the opposite - being so fidgety or restless that you have been moving around a lot more than usual: not at all 9. Thoughts that you would be better off or of hurting yourself in some way: not at all Total score: 0 Depression Screening Interpretation: Negative Depression Screening Done: Yes 35211 - PHQ-9 Billing: Yes Source: Developed by Drs. Josafat Milian, Coreen Bolaños, Mat Carty and colleagues, with an educational agata from [employer]. Thrive Questionnaire Date Thrive assessed: 11/04/24 I am a: Patient What is your living situation today?: I have a steady place to live Within the past 12 months, did the food you bought not last and you didn't have the money to get more?: Never true Within the past 12 months, did you worry whether your food would run out before you got money to buy more?: Never true Do you have trouble paying for medicines?: No Do you have trouble getting transportation to medical appointments?: No Do you have trouble paying your heating and electricity bill?: No Do you have trouble taking care of your child, family member or friend?: No Do you have trouble with day-to-day activities such as bathing, preparing meals, shopping, managing finances, etc.?: No Are you currently unemployed and looking for a job?: I choose not to answer this question Are you interested in more education?: No Please select the resources that you would like help with: None Currently or been in a relationship where the following occur: I choose not to answer THRIVE Score: 0 AUDIT C Alcohol Use Questionnaire (AUDIT-C) 1. How often do you have a drink containing alcohol?: Never Total Score: 0 MIRI-7 AMB Questionnaire MIRI-7 Date MIRI - 7 assessed: 11/04/24 Feeling nervous, anxious, or on edge: 0 = Not at all Not being able to stop or control worryin = Not at all Worrying too much about different things: 0 = Not at all Trouble relaxin = Not at all Being so restless that it is hard to sit still: 0 = Not at all Becoming easily annoyed or irritable: 0 = Not at all Feeling afraid as if something awful might happen: 0 = Not at all Total MIRI-7 score (0-4 normal; 5-9 mild; 10-14 moderate; 15-21 severe): 0 Source: Developed by Drs. Josafat Milian, Coreen Bolaños, Mat Carty and colleagues, with an educational agata from [employer]. MIRI-7 Assessment Billing MIRI-7 Assessment Tool: MIRI-7 Assessment 15709 Review of Systems Const Denies body aches, Denies chills, Denies excessive sweating, Denies fatigue, Denies fever(s) and Denies headache(s) Eyes Denies blurry vision ENT Denies dysphagia, Denies vertigo, Denies dizziness, Denies headache(s), Denies hearing loss and Denies tinnitus Card Denies chest pain, Denies chest pain with activity, Denies syncope, Denies irregular heart rhythm and Denies dyspnea Resp Denies chest congestion, Denies cough, Denies hemoptysis, Denies dyspnea and Denies wheezing GI Denies abdominal pain, Denies melena, Denies hematochezia, Denies coffee ground emesis, Denies dysphagia, Denies diarrhea, Denies nausea and Denies vomiting Denies difficulty urinating, Denies dysuria, Denies urinary frequency, Denies urinary hesitancy and Denies urinary urgency Musc Denies arthralgias, Denies limited range of motion, Denies muscle cramps and Denies muscle weakness Skin/Breast Denies rash and Denies skin ulcer Neuro Denies Abnormal speech present, Denies confusion, Denies vertigo, Denies dizziness, Denies syncope, Denies headache(s), Denies memory loss and Denies seizure-like activity Psych Denies anxiety, Denies confusion, Denies depression, Denies memory loss, Denies panic attacks and Denies paranoia Endo Denies excessive sweating, Denies fatigue, Denies flushing, Denies polydipsia and Denies polyuria Aller/Immun Denies wheezing Physical exam (Primary Care) Vital Signs: Last Vital Signs Temp 97.5 F 11/04/24 08:07 Pulse 98 11/04/24 08:07 Resp 20 11/04/24 08:07 BP 154/94 H 11/04/24 08:07 Pulse Ox 98 11/04/24 08:07 Oxygen Delivery Method Room Air 11/04/24 08:07 BMI result Body Mass Index 24.7 Tobacco/Smoking Status: Tobacco use Status Tobacco use date assessed 11/04/24 11/04/24 08:15 Patient Tobacco Use Status Former Tobacco user 11/04/24 08:15 Tobacco use type Cigarette 11/04/24 08:15 e-Cigarette/Vaping Use Former Use 11/04/24 08:15 PHQ-9: PHQ-9 Score PHQ-9: Total score 0 11/04/24 08:15 Depression Screening Interpretation: Negative Thrive Assessment: Date of Thrive Assessment Date Thrive assessed 11/04/24 11/04/24 08:15 Currently or been in a relationship where the following occur: I choose not to answer Const General: cooperative, comfortable, no acute distress, alert and awake; No confusion Orientation/consciousness: oriented to person, oriented to place, patient orie nted x3 and No confusion HENMT Head: Yes normocephalic Ears: external ears normal and TM's normal bilaterally Face and sinus: No sinus tenderness Mouth: Normal oral and palatal mucosa present and tongue normal Teeth and gingiva: dentition normal and gingiva normal Throat: Yes posterior oropharynx normal, Yes tonsils normal and Yes uvula midline Eyes Conjunctivae: conjunctivae normal Sclerae: sclerae normal Pupils: Equal, round and reactive pupils present EOM: EOMs intact bilaterally Direct Ophthalmoscopy: No no photophobia Neck Neck: Yes no lymphadenopathy, No tender and Yes no JVD Thyroid: Thyroid normal Carotids: no bruits Chest Chest palpation & inspection: no tenderness Resp Effort & Inspection: normal respiratory effort, no audible wheezes, not labored and no stridor Auscultation: no crackles, no rales, no rhonchi and no wheezes Cardio Jugular venous distension: no JVD Rate: regular rate, not bradycardic and not tachycardic Rhythm: regular rhythm Bruits: no carotid bruits Peripheral pulses: Peripheral pulses 2+ throughout GI Inspection: Yes normal to inspection, No abdominal wall ecchymosis and No visible herniation Palpation (GI): Soft to palpation, nontender, no guarding, not rigid and No hepatosplenomegaly present Auscultation: normoactive bowel sounds General: Yes no CVA tenderness Back/Spine/Pelvis Back: no CVA tenderness and No back tenderness Cervical Spine: cervical ROM normal Thoracic/Lumbar Spine: thoracic and lumbar spine normal to inspection, straight leg raise negative bilaterally, No thoraco-lumbar ROM limited and No lumbar spinal tenderness Skin Lesions: no lesions Rashes: no rashes Wounds: no wounds Neuro General: oriented to person, oriented to place, patient oriented x3, CN's II-XI intact bilaterally and No confusion Cranial nerves: Yes Equal, round and reactive pupils present and Yes Normal accommodation reflex present Cognition (Neuro): normal cognition Speech: No Abnormal speech present Gait exam (Neuro): Normal gait present Motor exam (neuro): 5/5 motor strength present throughout Extrem Right upper extremity: full ROM; no cyanosis Left upper extremity: full ROM; no cyanosis Right lower extremity: no edema Left lower extremity: no edema Psych Appearance: grossly normal Mental Status: mental status grossly normal Affect: normal affect Attitude: cooperative Thought process: Normal thought process present Coding Level of Care Code Est Pt Prev Care >65y(83555) Diagnoses Annual physical exam Z00.00 Mild intermittent asthma without complication J45.20 Asthma complication type: uncomplicated Asthma persistence: intermittent Asthma severity: mild MIRI (generalized anxiety disorder) F41.1 Primary hypertension I10 Hypertension type: primary hypertension Gastroesophageal reflux disease without esophagitis K21.9 Esophagitis presence: without esophagitis Additional Codes MIRI-7 Assessment Billing - MIRI-7 Assessment Tool: MIRI-7 Assessment 34841 ([id number]) PHQ-9 - 08500 - PHQ-9 Billing: Yes ([id number]) Assessment & Plan Assessment & Plan (1) Annual physical exam: Code(s): Z00.00 - Encounter for general adult medical examination without abnormal findings Category: Medical Plan: As per HPI (2) Asthma: Comment: HE HAS A MILD COMPONENT OF BRONCHOSPASTIC DISORDER, MAINLY IN THE SMALL AIRWAYS. AT PRESENT FULLY CONTROLLED. TX : USE ALBUTEROL HFA 1 OR 2 PUFFS Q 4-6 HOURS ONLY P.R.N. Code(s): J45.909 - Unspecified asthma, uncomplicated Category: Medical Qualifiers: Asthma complication type: uncomplicated Asthma persistence: intermittent Asthma severity: mild Qualified Code(s): J45.20 - Mild intermittent asthma, uncomplicated Plan: Patient reports his asthma is well controlled. Has not had to use an albuterol inhaler in quite some time. (3) MIRI (generalized anxiety disorder): Code(s): F41.1 - Generalized anxiety disorder Category: Medical Plan: Patient's MIRI-7 score 0, He is able to manage his anxiety on his own without medication. (4) HTN (hypertension): Code(s): I10 - Essential (primary) hypertension Category: Medical Qualifiers: Hypertension type: primary hypertension Qualified Code(s): I10 - Essential (primary) hypertension Plan: Patient's blood pressure elevated today in office. Has not been regularly monitoring his blood pressure. Was on lisinopril past which had caused him a cough. We did discuss starting blood pressure medication again though will like to hold off and work on lifestyle and dietary modifications. Advised to start monitoring blood pressure more regularly at home. Goal blood pressures to be below 140/90 (5) GERD (gastroesophageal reflux disease): Code(s): K21.9 - Gastro-esophageal reflux disease without esophagitis Category: Medical Qualifiers: Esophagitis presence: without esophagitis Qualified Code(s): K21.9 - Gastro-esophageal reflux disease without esophagitis Plan: Patient does report at times having gastric reflux type symptoms particularly at night while lying down. He will make dietary modifications to reduce his GERD symptoms. We did discuss trying [id number] antacids though he is apprehensive on using medication. Orders: Orders Comprehensive [place]. Panel Fast 11/04/24 I10 - Essential (primary) hypertension Complete Blood Count no Diff 11/04/24 I10 - Essential (primary) hypertension Prostate Specific Antigen Scr 11/04/24 Z12.5 - Encounter for screening for malignant neoplasm of prostate Patient Instructions: Goal: Blood pressure to be below 140/90 Barriers: Adherence to physical activity and healthy eating habits
== END 2024-11-04 08:37 | disposition home or self-care (01) ==
LOC: HO.HMCH 07:57
PROVIDERS: PCP Physician Assistant; Visit Provider Physician Assistant
DX: Z00.00 Encounter for general adult medical examination without abnormal findings (principal); J45.20 Mild intermittent asthma, uncomplicated; F41.1 Generalized anxiety disorder; I10 Essential (primary) hypertension; K21.9 Gastro-esophageal reflux disease without esophagitis

== ENCOUNTER → 2024-11-04 07:57 | Outpatient (BNVA) | payer OTHER, SELFPAY | PROVIDERS: PCP Physician Assistant; Visit Provider Physician Assistant | DX: Z00.00 Encounter for general adult medical examination without abnormal findings (principal); J45.20 Mild intermittent asthma, uncomplicated; F41.1 Generalized anxiety disorder; I10 Essential (primary) hypertension; K21.9 Gastro-esophageal reflux disease without esophagitis | CPT/HCPCS: 96127; 99397 ==

== ENCOUNTER 2025-01-27 07:30 | Outpatient (REF) | payer OTHER, SELFPAY ==
--- OUTSIDE RECORDS SUMMARY | 2025-01-27 07:33 | XMS_ITS | Clinical Summary ---
Author Organization [employer] Address [address] [place] [address] Care Team Providers Care Tongsman Name Role Phone Moises Farr Unavailable Unavailable Social History Tobacco Use Types Packs/Day Years Used Date Smoking Tobacco: Never Assessed Overall Financial Resource Strain (CARDIA) Answe r Date Recorded How hard is it for you to pa y for the very basics like food, housing, medical care, and heating? Hard 05/14/2023 Housing Stability Answer Date Recorded What is your housing situation today? I do not have housing (Staying with others, in a hotel, in a intermediate, living outside on the street, on a beach, in a car, or in a park 06/09/[address] you li ve. Do you have problems with any of the following? Not on file 06/09/2023 Food Insecurity Answer Date Recorded Within the past 12 months, y ou worried that your food would run out before you got money to buy more: Sometimes True 2022 Within the past 12 months,th e food you bought just didn't last and you didn't have enough money to get more: Sometimes True 06/12/2023 Transportation Answer Date Recorded In the past 12 months, has l ack of transportation kept you from medical appts, meetings, work or from getting things needed for daily living? No 06/09/2023 Intimate Partner Violence Answer Date R ecorded Within the last year, have y ou been afraid of your partner or ex-partner? 98 05/14/2023 Within the last year, have y ou been humiliated or emotionally abused in other ways by your partner or ex-partner? 98 Within the last year, have y ou been kicked, hit, slapped, or otherwise physically hurt by your partner or ex-partner? 98 05/14/2023 Within the last year, have y ou been raped or forced to have any kind of sexual activity by your partner or ex-partner? 98 05/14/2023 Utilities Answer Date Recorded In the past 12 months, has t he electric, gas, oil or water company threatened to shut off services in your home? I am not sure 06/09/2023 Sex and Gender Information Value Date Recorded Sex Assigned at Male 05/14/2023 11:26 AM EDT Legal Sex Male 12:26 PM EDT Gender Identity Male 05/14/2023 11:26 AM EDT Sexual Orientation Straight 05/14/2023 11 :26 AM EDT Plan of Treatment Health Maintenance Due Date Last Done Comments CT Colonography 1954 Colonoscopy 1954 Colorectal Cancer Screening 1954 Depression Screening 1954 FIT DNA/Cologuard 1954 FIT 1954 FOBT 1954 Lipid Panel 1954 Sigmoidoscopy 1954 Alcohol/Substance Use Screening 1966 Tobacco Screening 1966 DTaP/Tdap/Td Vaccines (1 - Tdap) 1973 Pneumococcal Vaccine: 50+ Ye ars (1 of 1 - PCV) 2004 Zoster Vaccines (1 of 2) 2004 COVID-19 Vaccine ( - 2023-2 5 season) 2024 Influenza Vaccine (Season Ended) 2025 RSV Patients and Pa tients Aged 60 years or older (1 - 1-dose 75+ series) 2029 HIB Vaccines Aged Out No longer eligi ble based on patient's age to complete this topic HPV Vaccines Aged Out No longer eligi ble based on patient's age to complete this topic Hepatitis A Vaccines Aged Out No long er eligible based on patient's age to complete this topic Hepatitis B Vaccines Aged Out No long er eligible based on patient's age to complete this topic IPV Vaccines Aged Out No longer eligi ble based on patient's age to complete this topic Meningococcal B Vaccine Aged Out No l onger eligible based on patient's age to complete this topic Meningococcal Vaccine Aged Out No rikki amarilys eligible based on patient's age to complete this topic RSV under 20 months Aged Out No longe r eligible based on patient's age to complete this topic Rotavirus Vaccines Aged Out No longer eligible based on patient's age to complete this topic Care Teams Tongsman Relationship Specialty Start Date End Date Moises Farr Community Health Worker 05/12/23
[2025-01-27 07:59] LABS: Hematocrit 45.7 % (42.0-52.0); Hemoglobin 15.8 g/dl (14.0-18.0); Mean Corpuscular HGB Conc 34.6 g/dl (31.0-36.0); Mean Corpuscular Hemoglobin 30.6 pg (27.0-33.0); Mean Corpuscular Volume 88.6 fL (80.0-98.0); Mean Platelet Volume 9.2 fL (9.4-12.4); Platelet Count 283 X10*3/uL (160-400); Red Blood Count 5.16 X10*6/uL (4.60-5.80); Red Cell Distribution Width 13.2 % (11.0-16.0)
[2025-01-27 08:23] LABS: Alanine Aminotransferase 12 U/L (0-40); Albumin Level 4.3 g/dL (3.5-5.0); Alkaline Phosphatase 77 U/L (39-117); Anion Gap 12 (12-20); Aspartate Amino Transferase 20 U/L (5-37); Blood Urea Nitrogen 9 mg/dL (9-16); Calcium 9.5 mg/dL (8.4-10.2); Carbon Dioxide 29 mmol/L (22-29); Chloride 105 mmol/L (96-108); Estimated Glomerular Filt Rate > 60; Glucose Fasting 102 mg/dL (60-99); Potassium 3.9 mmol/L (3.3-5.1); Sodium 142 mmol/L (135-145); Total Protein 7.4 g/dL (6.5-8.0)
[2025-01-27 08:46] LABS: Prostate Specific Antigen Scr 0.61 ng/mL (<0.05-4.0)
== END 2025-01-27 07:31 | disposition home or self-care (01) ==
LOC: HO.LAB 07:30
PROVIDERS: PCP Physician Assistant; Visit Provider Physician Assistant
DX: I10 Essential (primary) hypertension (principal); Z12.5 Encounter for screening for malignant neoplasm of prostate
CPT/HCPCS: 36415; 80053; 84153; 85027

== ENCOUNTER 2025-02-03 09:40 | Outpatient (AMB) | payer OTHER, SELFPAY ==
[2025-02-03 09:43] VITALS: BP 134/66; PULSE 90; TEMP 36.3; O2SAT 97; BMI 23.9
--- NOTE | 2025-02-03 09:43 | MHC.PC.OV ---
Vital Signs 02/03/25 09:43 Height 5 ft 7 in Weight 152 lb 6 oz BMI 23.9 BP 134/66 Blood Pressure Location Lt brachial Pulse 90 Pulse Source Pulse Oximeter Temp 97.4 F Temp Source Temporal Artery Scan Pulse Oximetry (%) 97 Oxygen Delivery Method Room Air Intake Visit Reasons: 3 Month F/U Loan Review Manager Required: No Accompanied by: Self / Same As Patient Allergies No Known Allergies Allergy (Verified 02/03/25 10:05) Medication List - Last Reconciled 02/03/25 by Adiel Cleary PA-C blood pressure test kit-medium As directed sildenafil 100 mg PO DAILY PRN 90 days Tobacco use date assessed: 11/04/24 Dental Screening Dental Screen Date: 11/04/24 HPI 3 Month F/U HPI Details Patient is a 69 y/ o M here today for a follow-up visit? Patient has a past history significant for hypertension, asthma. .. Asthma:? Did have a pulmonary function test few years ago did show reactive airway disease mostly in his small airways. Currently does not regularly use an albuterol inhaler. He feels his asthma is well controlled ? Otherwise denies any recent exacerbation or nighttime awakenings with asthma symptoms.? .. Impaired glucose metabolism: Most recent fasting blood sugar slightly elevated at 102, has been making dietary changes and reducing caffeinated sodas in his diet. .. Hypertension: Has significantly reduced his caffeinated sodas. Blood pressure today in office is acceptable today continue without medication at this time and advised patient to monitor blood pressure at home. Laboratory Tests 11/01/24 11/01/24 01/27/25 08:30 08:33 07:44 RBC 5.16 Creatinine 0.96 Fasting Glucose 107 H 102 H PSA Screen 0.61 Urine Microalbumin 20.0 PFSH Medical History Cervical myelopathy with cervical radiculopathy Erectile dysfunction Bronchitis Asthma exacerbation COPD (chronic obstructive pulmonary disease) Surgical History History of cholecystectomy H/O hernia repair Family History Father Alcoholic Brother Brain cancer Other Substance use disorder Social History Housing: Apartment Alcohol intake: former Year quit: 2006 Patient Tobacco Use Status: Former Tobacco user Tobacco use type: Cigarette Years Smoked: Quit 2011. e-Cigarette/Vaping Use: Former Use Second Hand Smoke Exposure: No Substance Use Type: Marijuana service: No Current occupational status: retired Cognitive needs: No Hearing needs: Yes (hearing aide) Vision needs: Yes (glasses) Questionnaire Thrive Questionnaire Date Thrive assessed: 02/03/25 I am a: Patient What is your living situation today?: I have a steady place to live Within the past 12 months, did the food you bought not last and you didn't have the money to get more?: Never true Within the past 12 months, did you worry whether your food would run out before you got money to buy more?: Never true Do you have trouble paying for medicines?: No Do you have trouble getting transportation to medical appointments?: No Do you have trouble paying your heating and electricity bill?: No Do you have trouble taking care of your child, family member or friend?: No Do you have trouble with day-to-day activities such as bathing, preparing meals, shopping, managing finances, etc.?: No Are you currently unemployed and looking for a job?: I choose not to answer this question Are you interested in more education?: No Please select the resources that you would like help with: None Currently or been in a relationship where the following occur: I choose not to answer THRIVE Score: 0 MIRI-7 AMB Questionnaire MIRI-7 Date MIRI - 7 assessed: 11/04/24 Source: Developed by Drs. Josafat Milian, Coreen Bolaños, Mat Carty and colleagues, with an educational agata from [employer]. Review of Systems Const Denies headache(s) Eyes Denies loss of vision ENT Denies vertigo, Denies dizziness, Denies headache(s) and Denies sore throat Card Denies chest pain, Denies leg edema and Denies lightheadedness Resp Denies cough, Denies hemoptysis and Denies wheezing GI Denies abdominal pain, Denies melena, Denies constipation, Denies diarrhea and Denies vomiting Denies dysuria, Denies urinary frequency and Denies urinary urgency Musc Denies arthralgias, Denies joint swelling, Denies numbness and Denies tingling Neuro Denies Abnormal speech present, Denies behavioral changes, Denies vertigo, Denies dizziness, Denies headache(s), Denies loss of vision, Denies memory loss, Denies numbness and Denies tingling Psych Denies anxiety, Denies behavioral changes, Denies depression, Denies memory loss and Denies panic attacks Bi/Lymph Denies easy bleeding and Denies easy bruising Aller/Immun Denies wheezing Physical exam (Primary Care) Vital Signs: Last Vital Signs Temp 97.4 F 02/03/25 09:43 Pulse 90 02/03/25 09:43 BP 134/66 02/03/25 09:43 Pulse Ox 97 02/03/25 09:43 Oxygen Delivery Method Room Air 02/03/25 09:43 BMI result Body Mass Index 23.9 Tobacco/Smoking Status: Tobacco use Status Tobacco use date assessed 11/04/24 02/03/25 09:50 Patient Tobacco Use Status Former Tobacco user 02/03/25 09:50 Tobacco use type Cigarette 02/03/25 09:50 e-Cigarette/Vaping Use Former Use 02/03/25 09:50 Thrive Assessment: Date of Thrive Assessment Date Thrive assessed 02/03/25 02/03/25 09:50 Currently or been in a relationship where the following occur: I choose not to answer Const General: healthy appearing, no acute distress, alert and awake Nutritional Appearance: well nourished Orientation/consciousness: oriented to person, oriented to place and oriented to time HENMT Ears: TM's normal bilaterally General nose exam: Normal nasal mucous membranes and turbinates present Eyes Conjunctivae: conjunctivae normal Sclerae: sclerae normal Pupils: Equal, round and reactive pupils present Neck Neck: Yes no lymphadenopathy and Yes no JVD Thyroid: Thyroid normal Carotids: no bruits Resp Effort & Inspection: normal respiratory effort and not tachypneic Auscultation: no crackles, no rales, no rhonchi and no wheezes Cardio Rate: regular rate Rhythm: regular rhythm Heart sounds: no murmurs and normal S1 and S2 GI Palpation (GI): Soft to palpation, nontender, no hepatomegaly and no splenomegaly Auscultation: normal bowel sounds Skin General skin exam: no rashes or lesions noted and dry skin Neuro General: oriented to person, oriented to place and oriented to time Cranial nerves: Yes Equal, round and reactive pupils present Speech: No Abnormal speech present Gait exam (Neuro): Normal gait present Motor exam (neuro): no tremor noted Extrem Right upper extremity: full ROM Left upper extremity: full ROM Right lower extremity: full ROM; no edema Left lower extremity: full ROM; no edema Psych Mental Status: mental status grossly normal Speech and movement: Normal speech and movement present Affect: normal affect Attitude: cooperative Thought process: Normal thought process present Coding Level of Care Code Est Pt Level 4 (25511) Diagnoses Mild intermittent asthma without complication J45.20 Asthma severity: mild Asthma persistence: intermittent Asthma complication type: uncomplicated Primary hypertension I10 Hypertension type: primary hypertension Assessment & Plan Assessment & Plan (1) Asthma: Comment: HE HAS A MILD COMPONENT OF BRONCHOSPASTIC DISORDER, MAINLY IN THE SMALL AIRWAYS. AT PRESENT FULLY CONTROLLED. TX : USE ALBUTEROL HFA 1 OR 2 PUFFS Q 4-6 HOURS ONLY P.R.N. Code(s): J45.909 - Unspecified asthma, uncomplicated Category: Medical Qualifiers: Asthma severity: mild Asthma persistence: intermittent Asthma complication type: uncomplicated Qualified Code(s): J45.20 - Mild intermittent asthma, uncomplicated Plan: Patient reports his asthma is well controlled. Has not had to use an albuterol inhaler in quite some time. Will supply patient with an albuterol inhaler to use in case of an emergency. (2) HTN (hypertension): Code(s): I10 - Essential (primary) hypertension Category: Medical Qualifiers: Hypertension type: primary hypertension Qualified Code(s): I10 - Essential (primary) hypertension Plan: Patient's blood pressure acceptable today in office. Has not been regularly monitoring his blood pressure. Has been off of lisinopril for about a year now. Has been making dietary changes and reducing the amount of caffeinated sodas he is drinking. . Goal blood pressures to be below 140/90 Orders: Orders Hemoglobin A1c Today R73.09 - Other abnormal glucose Comprehensive [place]. Panel Fast Today I10 - Essential (primary) hypertension Microalbumin, Random (w Creat) Today I10 - Essential (primary) hypertension Complete Blood Count no Diff Today J45.20 - Mild intermittent asthma, uncomplicated Medications: New albuterol sulfate 90 mcg/actuation (Ventolin HFA) 1 inh inhalation QID 8.5 grams 1RF 4 weeks J45.901 - Unspecified asthma with (acute) exacerbation
--- OUTSIDE RECORDS SUMMARY | 2025-02-03 10:47 | XMS_ITS | Clinical Summary ---
Author Organization [employer] Address [address] [place] [address] Care Team Providers Care Centrifugal Casting Machine Tender Name Role Phone Moises Farr Unavailable Unavailable [...] with others, in a hotel, in a long-term, living outside on the street, on a [...] age to complete this topic Care Teams Centrifugal Casting Machine Tender Relationship Specialty Start Date End Date Moises Farr Community Health Worker 05/12/23
== END 2025-02-03 10:18 | disposition home or self-care (01) ==
LOC: HO.HMCH 09:40
PROVIDERS: PCP Physician Assistant; Visit Provider Physician Assistant
DX: J45.20 Mild intermittent asthma, uncomplicated (principal); I10 Essential (primary) hypertension

== ENCOUNTER → 2025-02-03 09:40 | Outpatient (BNVA) | payer OTHER, SELFPAY | PROVIDERS: PCP Physician Assistant; Visit Provider Physician Assistant | DX: I10 Essential (primary) hypertension (principal); J45.21 Mild intermittent asthma with (acute) exacerbation; R73.09 Other abnormal glucose | CPT/HCPCS: 99212 ==

== ENCOUNTER 2025-05-10 10:06 | Outpatient (REF) | payer OTHER, SELFPAY ==
--- NOTE | ~2025-05-10 | XR_ITS ---
EXAMINATION: XR ELBOW, LEFT CLINICAL INFORMATION: M79.642 - Pain in left hand COMPARISON: March 28, 2023 TECHNIQUE: AP, lateral, and oblique views of the left elbow. FINDINGS: No acute cortical disruption or malalignment. No joint effusion. No lytic or blastic lesions. No subcutaneous emphysema. No metallic or radiopaque foreign body. XR/XR elbow LT min 3V IMPRESSION: Normal x-ray, left elbow. Electronically signed by: Rafiq Barbosa MD 05/10/2025 10:29 AM EDT
--- NOTE | ~2025-05-10 | XR_ITS ---
EXAMINATION: XR CERVICAL SPINE 4-5 VIEWS HISTORY: M79.642 - Pain in left hand COMPARISON: Comparison is made with the prior examination dated 05/04/2024. FINDINGS: AP, lateral, bilateral oblique, and open-mouth odontoid views of the cervical spine are submitted. Osseous mineralization is normal. Seven cervical vertebral bodies are identified maintaining normal height and alignment without evidence of fracture or subluxation. There is moderate degenerative disc disease from C3-4 through the C7-T1 with disc space narrowing and osteophyte formation. There is narrowing of the bilateral C3-4, C4-5, C5-6, and C6-7 neural foramen secondary to facet osteoarthritis and uncovertebral joint hypertrophy. The odontoid and lateral masses of C1 are intact. There is no prevertebral soft tissue swelling. XR/XR cervical spine 4V IMPRESSION: Degenerative changes of the cervical spine as described. Electronically signed by: Josafat Verma MD 05/10/2025 10:29 AM EDT
--- NOTE | ~2025-05-10 | XR_ITS ---
EXAMINATION: XR HAND, LEFT CLINICAL INFORMATION: M79.642 - Pain in left hand COMPARISON: None available. TECHNIQUE: PA, lateral, and oblique views of the left hand. FINDINGS: Asymmetric joint space narrowing involving the proximal distal interphalangeal joints of the digits pronounced on the fifth digit. Small marginal osteophyte formation ulnar aspect of the distal interphalangeal joints of the fifth digits. No acute cortical disruption or malalignment. No lytic or blastic lesions. No subcutaneous emphysema. 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 Electronically signed by: Rafiq Barbosa MD 05/10/2025 10:30 AM EDT
--- OUTSIDE RECORDS SUMMARY | 2025-05-10 11:11 | XMS_ITS | Clinical Summary ---
Author Organization [employer] Address [address] [place] [address] Care Team Providers Care Neuroscience Specialist Name Role Phone Moises Farr Unavailable Unavailable [...] with others, in a hotel, in a usp, living outside on the street, on a [...] Vaccines (1 of 2) 2004 COVID-19 Vaccine (1 - 2023-2 5 season) 2025 Influenza Vaccine (#1) 2025 RSV Patients and Pa tients Aged [...] age to complete this topic Care Teams Neuroscience Specialist Relationship Specialty Start Date End Date Moises Farr Community Health Worker 05/12/23
== END 2025-05-10 10:07 | disposition home or self-care (01) ==
LOC: HO.XRAY 10:06
PROVIDERS: PCP Physician Assistant; Visit Provider Physician Assistant
DX: M79.642 Pain in left hand (principal); M54.2 Cervicalgia
CPT/HCPCS: 72050; 73080; 73130

== ENCOUNTER → 2025-05-10 10:10 | Outpatient (BNV) | payer OTHER, SELFPAY | PROVIDERS: PCP Physician Assistant; Visit Provider Radiology Diagnostic Radiology | DX: M50.33 Other cervical disc degeneration, cervicothoracic region (principal); M50.31 Other cervical disc degeneration, high cervical region; M19.042 Primary osteoarthritis, left hand; M25.522 Pain in left elbow | CPT/HCPCS: 72050; 73080; 73130 ==